=== PATIENT | female | born 1945 | race Caucasian/White ===

== ENCOUNTER → 2019-04-29 | Day surgery (SDC) | payer MEDICARE ==
[~2019-04-29] MED LIST: CLONAZEPAM0.5 MG PO; DEXILANT60 MG PO; FENTANYL CITRATE/PF 100MCG/2 ML INJ ONE; GABAPENTIN300 MG PO; HORIZANT600 MG PO; HUMALOG MI100 UNIT/2 SC; JENTADUETO 2.51 EAC2 PO; METFORMIN HCL500 MG PO; MIDAZOLAM HCL 2 MG/2 ML VIAL ONE; OR PHACO EYE KIT ONE; PREOP PHACO EYE KIT ONE; TRIAMTERENE-HC1 EAC2 PO; TRILIPIX135 MG PO; VANLAFAXINE PO
[2019-04-29 13:13] VITALS: BP 111/73
== END | disposition home or self-care (01) ==
LOC: OR 09:48
PROVIDERS: ATTEND Ophthalmology
DX: H25.11 Age-related nuclear cataract, right eye (principal); E11.9 Type 2 diabetes mellitus without complications; I10 Essential (primary) hypertension; J44.9 Chronic obstructive pulmonary disease, unspecified; K21.9 Gastro-esophageal reflux disease without esophagitis; E78.5 Hyperlipidemia, unspecified; F41.9 Anxiety disorder, unspecified; Z88.6 Allergy status to analgesic agent; Z88.8 Allergy status to other drugs, medicaments and biological substances; Z79.82 Long term (current) use of aspirin; Z79.84 Long term (current) use of oral hypoglycemic drugs; Z87.891 Personal history of nicotine dependence
CPT/HCPCS: 36415; 66984; 82948; J2250; J3010; V2632

== ENCOUNTER → 2019-05-13 | Day surgery (SDC) | payer MEDICARE ==
[2019-05-13 11:30] VITALS: BP 135/80
== END | disposition home or self-care (01) ==
LOC: OR 07:50
PROVIDERS: ATTEND Ophthalmology
DX: H25.12 Age-related nuclear cataract, left eye (principal); J44.9 Chronic obstructive pulmonary disease, unspecified; E78.5 Hyperlipidemia, unspecified; E11.9 Type 2 diabetes mellitus without complications; K21.9 Gastro-esophageal reflux disease without esophagitis; C91.10 Chronic lymphocytic leukemia of B-cell type not having achieved remission; F41.9 Anxiety disorder, unspecified; Z88.8 Allergy status to other drugs, medicaments and biological substances; Z88.6 Allergy status to analgesic agent; Z91.040 Latex allergy status; Z79.4 Long term (current) use of insulin; Z87.891 Personal history of nicotine dependence
CPT/HCPCS: 36415; 66984; 82948; J2250; J3010; V2632

== ENCOUNTER 2023-01-06 11:27 | Inpatient (IN) | payer MEDICARE ==
[~2023-01-06] VITALS: Ht 162.6 cm; Wt 72.6 kg
[~2023-01-06 11:27] MED LIST changes: -FENTANYL CITRATE/PF 100MCG/2 ML INJ ONE; -MIDAZOLAM HCL 2 MG/2 ML VIAL ONE; -OR PHACO EYE KIT ONE; -PREOP PHACO EYE KIT ONE
[2023-01-06] MEDS ORDERED: ONDANSETRON HCL INJ 2MG/ML 2ML 2 MG/ML VIAL IV STA (12:21)
[2023-01-06] MEDS ORDERED: LACTATED RINGER'S 1,000 ML IV ONE (12:30)
[2023-01-06 12:37] LABS: EOSINOPHILS # (AUTO) 0.1 (0.0-0.4); HEMATOCRIT 36.8 % (34.2-44.1); HEMOGLOBIN 11.2 g/dL (12.0-16.0); LYMPHOCYTES # (AUTO) 167.1 (1.0-3.2); LYMPHOCYTES % 89.9 % (18.0-39.1); MEAN CORPUSCULAR HEMOGLOBIN 28.3 pg (28-32); MEAN CORPUSCULAR HGB CONC 30.4 g/dL (31-35); MEAN CORPUSCULAR VOLUME 92.9 fL (81-99); MONOCYTES # (AUTO) 1.9 (0.2-0.8); NEUTROPHILS # (AUTO) 15.7 (2.1-6.9); NEUTROPHILS % 8.5 % (38.7-80.0); PLATELET COUNT 223 x10e3/uL (140-360); RED BLOOD COUNT 3.96 x10e6/uL (3.6-5.1); RED CELL DISTRIBUTION WIDTH 15.2 % (11.7-14.4)
[2023-01-06 12:39] LABS: CLARITY,URINE SL CLOUDY (CLEAR); COLOR,URINE YELLOW (YELLOW)
[2023-01-06 12:40] LABS: KETONES,URINE NEGATIVE (NEGATIVE); LEUKOCYTE ESTERASE ,URINE NEGATIVE (NEGATIVE); NITRITE,URINE POSITIVE (NEGATIVE); PROTEIN,URINE DIPSTICK 1+ (NEGATIVE); URINE UROBILINOGEN 0.2 mg/dL (0.2 - 1)
[2023-01-06 12:49] LABS: ALANINE AMINOTRANSFERASE 41 IU/L (0-55); ALBUMIN 3.7 g/dL (3.5-5.0); ALBUMIN/GLOBULIN RATIO 1.4 (0.8-2.0); ALKALINE PHOSPHATASE 69 IU/L (40-150); ANION GAP 16.7 mmol/L (8-16); BLOOD UREA NITROGEN 16 mg/dL (7-26); BUN/CREATININE RATIO 18 (6-25); CALCIUM 9.3 mg/dL (8.4-10.2); CARBON DIOXIDE 24 mmol/L (22-29); CHLORIDE 96 mmol/L (98-107); CREATINE KINASE 1988 IU/L (29-168); GLUCOSE 190 mg/dL (74-118); POTASSIUM 3.7 mmol/L (3.5-5.1); SODIUM 133 mmol/L (136-145)
[2023-01-06 12:51] LABS: BACTERIA,URINE MANY /HPF; EPITHELIAL CELLS,URINE FEW /LPF
[2023-01-06] MEDS ORDERED: Vancomycin IV 1 GM in SODIUM CHLORIDE 0.9% 250ML 250 ML IV ONE (13:00)
[2023-01-06] MEDS ORDERED: IOPAMIDOL 370 MG/ML 100 ML INFUS..BTL INJ ONE (13:16)
[2023-01-06 13:41] LABS: BLAST CELLS % MANUAL 2; LYMPHOCYTES % (MANUAL) 78 % (19-48); MONOCYTES % (MANUAL) 1 % (3.4-9.0); NEUTROPHILS % (MANUAL) 17 % (40-74)
[2023-01-06 13:44] LABS: PLATELET ESTIMATE ADEQUATE; PLATELET MORPHOLOGY COMMENT NORMAL; SMUDGE CELLS FEW
[2023-01-06] MEDS ORDERED: SODIUM CHLORIDE FLUSH 10 ML SYR INJ PRN (14:00)
[2023-01-06] MEDS: SODIUM CHLORIDE 0.9% 1000ML 1,000 ML IV SCH ×2 (14:00→20:40)
[2023-01-06 14:46] LABS: CREATINE KINASE MB 11.1 ng/mL (0-5.0)
[2023-01-06] MEDS ORDERED: CEFTRIAXONE 1 GM VIAL IV ONE (15:45)
[2023-01-06 16:40] VITALS: PULSE 98; RESP 17; O2SAT 99
[2023-01-06] MEDS ORDERED: DEXTROSE 50% SYRINGE 50 ML IV PRN (16:45)
[2023-01-06] MEDS: INSULIN LISPRO 100 UNIT/1 ML 3ML VIAL SQ SCH (17:07)
[2023-01-06 18:20] VITALS: BP 123/83; PULSE 91; RESP 18; TEMP 98.4; O2SAT 100
[2023-01-06 18:47] VITALS: BP 125/83; PULSE 91; RESP 18; TEMP 98.4; O2SAT 100
[2023-01-06 20:00] VITALS: BP 134/69; PULSE 89; RESP 20; TEMP 97; O2SAT 99
[2023-01-06 20:05] VITALS: PULSE 89; RESP 18; O2SAT 99
[2023-01-06 21:00] VITALS: BP 134/69; PULSE 89; RESP 18; TEMP 97; O2SAT 99
[2023-01-07] VITALS (9 sets, daily range): BP systolic 141–168; BP diastolic 53–81; PULSE 53–96; RESP 16–20; TEMP 97.1–98.8; O2SAT 20–100
[2023-01-07] MEDS ORDERED: VENLAFAXINE HCL75 MG PO (06:03)
[2023-01-07] MEDS ORDERED: BUSPIRONE HCL10 MG PO (06:07)
[2023-01-07 06:28] LABS: BASOPHILS # (AUTO) 0.1 (0.0-0.1); BASOPHILS % 0.1 % (0.0-1.0); EOSINOPHILS # (AUTO) 0.2 (0.0-0.4); EOSINOPHILS % 0.2 % (0.0-6.0); HEMATOCRIT 32.3 % (34.2-44.1); HEMOGLOBIN 9.6 g/dL (12.0-16.0); LYMPHOCYTES # (AUTO) 127.3 (1.0-3.2); LYMPHOCYTES % 91.2 % (18.0-39.1); MEAN CORPUSCULAR HEMOGLOBIN 27.6 pg (28-32); MEAN CORPUSCULAR HGB CONC 29.7 g/dL (31-35); MEAN CORPUSCULAR VOLUME 92.8 fL (81-99); MONOCYTES # (AUTO) 1.5 (0.2-0.8); MONOCYTES % 1.1 % (4.4-11.3); NEUTROPHILS # (AUTO) 9.9 (2.1-6.9); PLATELET COUNT 174 x10e3/uL (140-360); RED BLOOD COUNT 3.48 x10e6/uL (3.6-5.1); RED CELL DISTRIBUTION WIDTH 15.2 % (11.7-14.4)
[2023-01-07 06:54] LABS: ALBUMIN 2.8 g/dL (3.5-5.0); ALBUMIN/GLOBULIN RATIO 1.3 (0.8-2.0); ANION GAP 11.8 mmol/L (8-16); CALCIUM 8.7 mg/dL (8.4-10.2); CREATININE, SERUM 0.77 mg/dL (0.57-1.11); POTASSIUM 3.8 mmol/L (3.5-5.1)
[2023-01-07 06:56] LABS: CHOL/HDL RATIO 4.5 (3.0-3.6)
[2023-01-07 07:03] LABS: CREATINE KINASE MB 1.8 ng/mL (0-5.0)
[2023-01-07 07:17] LABS: MAGNESIUM 1.8 MG/DL (1.3-2.1); PHOSPHORUS 2.7 MG/DL (2.3-4.7)
[2023-01-07] MEDS: INSULIN LISPRO 100 UNIT/1 ML 3ML VIAL SQ SCH ×5 (07:30→20:46)
[2023-01-07] MEDS: SODIUM CHLORIDE 0.9% 1000ML 1,000 ML IV SCH ×4 (08:54→20:43)
[2023-01-07] MEDS: ACETAMINOPHEN 325 MG TAB PO PRN ×2 (10:46→18:09)
[2023-01-07 11:35] LABS: BLAST CELLS % MANUAL 1; LYMPHOCYTES % (MANUAL) 86 % (19-48); MONOCYTES % (MANUAL) 1 % (3.4-9.0); NEUTROPHILS % (MANUAL) 10 % (40-74); PLATELET ESTIMATE ADEQUATE; PLATELET MORPHOLOGY COMMENT NORMAL
[2023-01-07 11:36] LABS: SMUDGE CELLS FEW
[2023-01-07] MEDS ORDERED: CLONAZEPAM 0.5 MG TAB PO SCH (12:15)
[2023-01-07] MEDS: ONDANSETRON HCL INJ 2MG/ML 2ML 2 MG/ML VIAL IV PRN (13:29)
[2023-01-07] MEDS: BUSPIRONE HCL 10 MG TABLET PO SCH ×3 (15:14→20:45)
[2023-01-07] MEDS: CLONAZEPAM 0.5 MG TAB PO SCH (20:45)
[2023-01-08] VITALS (9 sets, daily range): BP systolic 141–164; BP diastolic 46–78; PULSE 53–84; RESP 16–21; TEMP 97.8–98.5; O2SAT 97–100
[2023-01-08] MEDS: SODIUM CHLORIDE 0.9% 1000ML 1,000 ML IV SCH ×3 (05:28→19:34)
[2023-01-08 05:45] LABS: ANION GAP 11.8 mmol/L (8-16); CALCIUM 8.1 mg/dL (8.4-10.2); CREATININE, SERUM 0.7 mg/dL (0.57-1.11); MAGNESIUM 1.8 MG/DL (1.3-2.1); PHOSPHORUS 2.4 MG/DL (2.3-4.7); POTASSIUM 3.8 mmol/L (3.5-5.1)
[2023-01-08] MEDS: INSULIN LISPRO 100 UNIT/1 ML 3ML VIAL SQ SCH ×4 (07:30→21:00)
[2023-01-08] MEDS: VENLAFAXINE HCL 75 MG CAPCR PO SCH (08:55)
[2023-01-08] MEDS: CLONAZEPAM 0.5 MG TAB PO SCH ×2 (08:55→21:40)
[2023-01-08] MEDS: ACETAMINOPHEN 325 MG TAB PO PRN ×2 (08:56→19:28)
[2023-01-08 14:07] LABS: BASOPHILS # (AUTO) 0.1 (0.0-0.1); BASOPHILS % 0.1 % (0.0-1.0); EOSINOPHILS # (AUTO) 0.4 (0.0-0.4); EOSINOPHILS % 0.3 % (0.0-6.0); HEMATOCRIT 30.4 % (34.2-44.1); HEMOGLOBIN 8.8 g/dL (12.0-16.0); LYMPHOCYTES % 89.5 % (18.0-39.1); MEAN CORPUSCULAR HEMOGLOBIN 28.6 pg (28-32); MEAN CORPUSCULAR HGB CONC 28.9 g/dL (31-35); MEAN CORPUSCULAR VOLUME 98.7 fL (81-99); MONOCYTES # (AUTO) 1.1 (0.2-0.8); NEUTROPHILS # (AUTO) 9.7 (2.1-6.9); NEUTROPHILS % 8.7 % (38.7-80.0); PLATELET COUNT 135 x10e3/uL (140-360); RED BLOOD COUNT 3.08 x10e6/uL (3.6-5.1); RED CELL DISTRIBUTION WIDTH 15.7 % (11.7-14.4)
[2023-01-08] MEDS: BUSPIRONE HCL 10 MG TABLET PO SCH ×2 (14:19→21:41)
[2023-01-08] MEDS: TRAMADOL HCL 50 MG TAB PO PRN ×2 (14:21→21:41)
[2023-01-08] MEDS: LEVOFLOXACIN 500MG/D5W 100ML 100 ML IV SCH (14:21)
[2023-01-09] VITALS (9 sets, daily range): BP systolic 141–182; BP diastolic 54–81; PULSE 64–88; RESP 16–20; TEMP 97.6–98.6; O2SAT 96–100
[2023-01-09] MEDS: SODIUM CHLORIDE 0.9% 1000ML 1,000 ML IV SCH ×4 (01:22→20:52)
[2023-01-09 05:57] LABS: BASOPHILS # (AUTO) 0.1 (0.0-0.1); BASOPHILS % 0.1 % (0.0-1.0); EOSINOPHILS # (AUTO) 0.5 (0.0-0.4); EOSINOPHILS % 0.4 % (0.0-6.0); HEMATOCRIT 31.1 % (34.2-44.1); HEMOGLOBIN 9.3 g/dL (12.0-16.0); LYMPHOCYTES # (AUTO) 102.5 (1.0-3.2); LYMPHOCYTES % 89.7 % (18.0-39.1); MEAN CORPUSCULAR HEMOGLOBIN 28.4 pg (28-32); MEAN CORPUSCULAR HGB CONC 29.9 g/dL (31-35); MEAN CORPUSCULAR VOLUME 94.8 fL (81-99); MONOCYTES # (AUTO) 1.2 (0.2-0.8); NEUTROPHILS # (AUTO) 9.6 (2.1-6.9); NEUTROPHILS % 8.4 % (38.7-80.0); PLATELET COUNT 148 x10e3/uL (140-360); RED BLOOD COUNT 3.28 x10e6/uL (3.6-5.1); RED CELL DISTRIBUTION WIDTH 15.4 % (11.7-14.4)
[2023-01-09] MEDS: INSULIN LISPRO 100 UNIT/1 ML 3ML VIAL SQ SCH ×4 (07:30→20:52)
[2023-01-09] MEDS: TRAMADOL HCL 50 MG TAB PO PRN ×2 (08:23→17:11)
[2023-01-09] MEDS: VENLAFAXINE HCL 75 MG CAPCR PO SCH (08:24)
[2023-01-09] MEDS: CLONAZEPAM 0.5 MG TAB PO SCH ×2 (08:24→20:52)
[2023-01-09] MEDS: ONDANSETRON HCL INJ 2MG/ML 2ML 2 MG/ML VIAL IV PRN (08:24)
[2023-01-09] MEDS: BUSPIRONE HCL 10 MG TABLET PO SCH ×3 (08:24→20:52)
[2023-01-09 08:48] LABS: LYMPHOCYTES % (MANUAL) 86 % (19-48); MONOCYTES % (MANUAL) 3 % (3.4-9.0); NEUTROPHILS % (MANUAL) 11 % (40-74)
[2023-01-09 08:49] LABS: PLATELET ESTIMATE SLIGHTLY DECREASED; PLATELET MORPHOLOGY COMMENT NORMAL; RBC MORPHOLOGY COMMENT NORMAL
[2023-01-09] MEDS: LEVOFLOXACIN 500MG/D5W 100ML 100 ML IV SCH (14:36)
[2023-01-10] VITALS (9 sets, daily range): BP systolic 152–187; BP diastolic 60–85; PULSE 73–86; RESP 18–20; TEMP 97.3–98.4; O2SAT 97–99
[2023-01-10] MEDS: INSULIN LISPRO 100 UNIT/1 ML 3ML VIAL SQ SCH ×4 (07:30→20:24)
[2023-01-10] MEDS: VENLAFAXINE HCL 75 MG CAPCR PO SCH (09:12)
[2023-01-10] MEDS: CLONAZEPAM 0.5 MG TAB PO SCH ×2 (09:12→20:49)
[2023-01-10] MEDS: BUSPIRONE HCL 10 MG TABLET PO SCH ×3 (09:12→20:49)
[2023-01-10] MEDS: TRAMADOL HCL 50 MG TAB PO PRN ×2 (09:13→16:34)
[2023-01-10] MEDS: SODIUM CHLORIDE 0.9% 1000ML 1,000 ML IV SCH ×2 (11:20→16:44)
[2023-01-10] MEDS: LEVOFLOXACIN 500MG/D5W 100ML 100 ML IV SCH (13:13)
[2023-01-10] MEDS: ACETAMINOPHEN 325 MG TAB PO PRN (18:19)
[2023-01-10] MEDS: METOPROLOL TARTRATE 25 MG TAB PO SCH (21:23)
[2023-01-11] VITALS (8 sets, daily range): BP systolic 125–165; BP diastolic 54–71; PULSE 60–90; RESP 18–20; TEMP 97.3–99.4; O2SAT 93–100
[2023-01-11] MEDS: SODIUM CHLORIDE 0.9% 1000ML 1,000 ML IV SCH ×4 (00:54→21:45)
[2023-01-11] MEDS: METOPROLOL TARTRATE 25 MG TAB PO SCH ×3 (06:00→21:46)
[2023-01-11] MEDS: VENLAFAXINE HCL 75 MG CAPCR PO SCH (08:39)
[2023-01-11] MEDS: CLONAZEPAM 0.5 MG TAB PO SCH ×2 (08:40→21:45)
[2023-01-11] MEDS: BUSPIRONE HCL 10 MG TABLET PO SCH ×3 (08:40→21:45)
[2023-01-11] MEDS: INSULIN LISPRO 100 UNIT/1 ML 3ML VIAL SQ SCH ×4 (08:45→21:00)
[2023-01-11] MEDS: ONDANSETRON HCL INJ 2MG/ML 2ML 2 MG/ML VIAL IV PRN (08:49)
[2023-01-11] MEDS ORDERED: IMMU GLOBULIN,GAMMA (IGG) 600 ML IV ONE (12:00)
[2023-01-11] MEDS: TRAMADOL HCL 50 MG TAB PO PRN (13:10)
[2023-01-11] MEDS: LEVOFLOXACIN 500MG/D5W 100ML 100 ML IV SCH (13:29)
[2023-01-12] VITALS: BP 139/76; PULSE 83; RESP 20; TEMP 98.4; O2SAT 96
[2023-01-12] MEDS: SODIUM CHLORIDE 0.9% 1000ML 1,000 ML IV SCH (04:04)
[2023-01-12 05:49] LABS: BASOPHILS # (AUTO) 0.1 (0.0-0.1); BASOPHILS % 0.1 % (0.0-1.0); HEMATOCRIT 29.6 % (34.2-44.1); HEMOGLOBIN 8.9 g/dL (12.0-16.0); LYMPHOCYTES % 91.6 % (18.0-39.1); MEAN CORPUSCULAR HEMOGLOBIN 28.3 pg (28-32); MEAN CORPUSCULAR HGB CONC 30.1 g/dL (31-35); MEAN CORPUSCULAR VOLUME 94.3 fL (81-99); MONOCYTES # (AUTO) 1.3 (0.2-0.8); MONOCYTES % 1.3 % (4.4-11.3); NEUTROPHILS # (AUTO) 6.7 (2.1-6.9); NEUTROPHILS % 6.7 % (38.7-80.0); PLATELET COUNT 140 x10e3/uL (140-360); RED BLOOD COUNT 3.14 x10e6/uL (3.6-5.1)
[2023-01-12 05:58] VITALS: BP 152/81; PULSE 84; RESP 16; TEMP 97.9; O2SAT 99
[2023-01-12] MEDS: METOPROLOL TARTRATE 25 MG TAB PO SCH (06:04)
[2023-01-12 06:10] LABS: CREATININE, SERUM 0.75 mg/dL (0.57-1.11)
[2023-01-12] MEDS: INSULIN LISPRO 100 UNIT/1 ML 3ML VIAL SQ SCH (07:30)
[2023-01-12 07:40] LABS: EOSINOPHILS % (MANUAL) 1 % (0-7); LYMPHOCYTES % (MANUAL) 86 % (19-48); MONOCYTES % (MANUAL) 3 % (3.4-9.0); NEUTROPHILS % (MANUAL) 10 % (40-74)
[2023-01-12 07:41] LABS: PLATELET ESTIMATE SLIGHTLY DECREASED; PLATELET MORPHOLOGY COMMENT NORMAL; RBC MORPHOLOGY COMMENT NORMAL
[2023-01-12 07:42] LABS: ANISOCYTOSIS SLIGHT; SMUDGE CELLS MODERATE
[2023-01-12 08:00] VITALS: BP 140/80; PULSE 76; RESP 18; TEMP 97.9; O2SAT 96
[2023-01-12 08:15] VITALS: BP 140/80; PULSE 76; RESP 18; TEMP 97.9; O2SAT 96
[2023-01-12] MEDS: BUSPIRONE HCL 10 MG TABLET PO SCH (09:10)
[2023-01-12] MEDS: CLONAZEPAM 0.5 MG TAB PO SCH (09:10)
[2023-01-12] MEDS: VENLAFAXINE HCL 75 MG CAPCR PO SCH (09:10)
== END 2023-01-12 09:27 | DRG 372 ==
LOC: ER 11:38 → ERHOLD 14:05 → MED/SURG3 17:51
PROVIDERS: ADMIT Internal Medicine; ATTEND Internal Medicine
DX: A04.72 Enterocolitis due to Clostridium difficile, not specified as recurrent (principal); C91.10 Chronic lymphocytic leukemia of B-cell type not having achieved remission; N39.0 Urinary tract infection, site not specified; M62.82 Rhabdomyolysis; N17.9 Acute kidney failure, unspecified; E87.0 Hyperosmolality and hypernatremia; E87.1 Hypo-osmolality and hyponatremia; D83.9 Common variable immunodeficiency, unspecified; E80.6 Other disorders of bilirubin metabolism; B96.89 Other specified bacterial agents as the cause of diseases classified elsewhere; E11.9 Type 2 diabetes mellitus without complications; F41.9 Anxiety disorder, unspecified; E88.09 Other disorders of plasma-protein metabolism, not elsewhere classified
CPT/HCPCS: 0223U; 36415; 70450; 71045; 72125; 74177; 80048; 80053; 80061; 81001; 82248; 82310; 82550; 82553; 82565; 82784; 82948; 83036; 83605; 83735; 83880; 84100; 84484; 84520; 85025; 87040; 87086; 87186; 93005; 93306; 94799; 99252; 99285; J0696; J1561; J1956; J2405; J7030; J7050; Q9967

== ENCOUNTER 2023-09-16 14:03 | Emergency (ER) | payer MEDICARE ==
[~2023-09-16] VITALS: Ht 162.6 cm; Wt 72.6 kg
[~2023-09-16 14:03] MED LIST changes: +BUSPIRONE HCL10 MG PO; +VENLAFAXINE HCL75 MG PO
[2023-09-16] MEDS ORDERED: SODIUM CHLORIDE 0.9% 1000ML 1,000 ML IV ONE (15:15)
[2023-09-16 15:44] LABS: BASOPHILS # (AUTO) 0.1 (0.0-0.1); BASOPHILS % 0.1 % (0.0-1.0); EOSINOPHILS # (AUTO) 0.3 (0.0-0.4); EOSINOPHILS % 0.5 % (0.0-6.0); HEMATOCRIT 37.5 % (34.2-44.1); HEMOGLOBIN 11.2 g/dL (12.0-16.0); LYMPHOCYTES # (AUTO) 60.4 (1.0-3.2); LYMPHOCYTES % 90.5 % (18.0-39.1); MEAN CORPUSCULAR HEMOGLOBIN 27.1 pg (28-32); MEAN CORPUSCULAR HGB CONC 29.9 g/dL (31-35); MEAN CORPUSCULAR VOLUME 90.8 fL (81-99); MONOCYTES # (AUTO) 0.8 (0.2-0.8); MONOCYTES % 1.2 % (4.4-11.3); NEUTROPHILS # (AUTO) 5.1 (2.1-6.9); NEUTROPHILS % 7.5 % (38.7-80.0); PLATELET COUNT 211 x10e3/uL (140-360); RED BLOOD COUNT 4.13 x10e6/uL (3.6-5.1)
[2023-09-16 15:49] LABS: WHITE BLOOD COUNT 66.72 x10e3/uL (4.8-10.8)
[2023-09-16 16:06] LABS: ALBUMIN 4.4 g/dL (3.5-5.0); ALBUMIN/GLOBULIN RATIO 1.6 (0.8-2.0); ANION GAP 13.9 mmol/L (8-16); BILIRUBIN,TOTAL 0.2 mg/dL (0.2-1.2); CALCIUM 9.3 mg/dL (8.4-10.2); CREATININE, SERUM 1.19 mg/dL (0.57-1.11); POTASSIUM 3.9 mmol/L (3.5-5.1); TOTAL PROTEIN 7.2 g/dL (6.5-8.1)
[2023-09-16 16:10] LABS: BILIRUBIN,URINE NEGATIVE (NEGATIVE); CLARITY,URINE SL CLOUDY (CLEAR); COLOR,URINE YELLOW (YELLOW); GLUCOSE, URINE NEGATIVE (NEGATIVE); KETONES,URINE TRACE (NEGATIVE); LEUKOCYTE ESTERASE ,URINE TRACE (NEGATIVE); NITRITE,URINE POSITIVE (NEGATIVE); PH,URINE 5.5 (5 - 7); PROTEIN,URINE DIPSTICK 1+ (NEGATIVE); URINE UROBILINOGEN 0.2 mg/dL (0.2 - 1)
[2023-09-16 16:27] LABS: BACTERIA,URINE MANY /HPF; EPITHELIAL CELLS,URINE MANY /LPF
[2023-09-16] MEDS ORDERED: IOPAMIDOL 370 MG/ML 100 ML INFUS..BTL INJ ONE (16:33)
[2023-09-16] MEDS ORDERED: CEPHALEXIN500 MG PO (17:59)
[2023-09-16 21:06] LABS: LYMPHOCYTES % (MANUAL) 95 % (19-48); MONOCYTES % (MANUAL) 2 % (3.4-9.0); NEUTROPHILS % (MANUAL) 3 % (40-74)
[2023-09-16 21:09] LABS: PLATELET ESTIMATE ADEQUATE; PLATELET MORPHOLOGY COMMENT NORMAL; RBC MORPHOLOGY COMMENT NORMAL
[2023-09-17 03:36] VITALS: BP 134/79; PULSE 79; RESP 18; TEMP 98; O2SAT 99
== END 2023-09-16 18:49 | disposition home or self-care (01) ==
LOC: ER 15:13
DX: R10.30 Lower abdominal pain, unspecified (principal); N39.0 Urinary tract infection, site not specified; R11.2 Nausea with vomiting, unspecified; R19.7 Diarrhea, unspecified; E11.65 Type 2 diabetes mellitus with hyperglycemia; E78.5 Hyperlipidemia, unspecified; J44.9 Chronic obstructive pulmonary disease, unspecified; Z85.6 Personal history of leukemia
CPT/HCPCS: 36415; 74177; 80053; 81001; 83690; 85025; 87086; 87186; 99284; J0696; J7030; Q9967